=== PATIENT | female | born 2005 | race Caucasian/White ===

== ENCOUNTER 2025-01-11 17:59 | Emergency (ER) | payer OTHER, SELFPAY ==
[2025-01-11 18:04] VITALS: BP 144/92; PULSE 72; RESP 16; TEMP 37.1; O2SAT 97; BMI 24.5
--- NOTE | 2025-01-11 18:10 | CRLHL7_ITS ---
For Patients: As a result of the Century Cures Act, medical imaging exams and procedure reports are released immediately into your electronic medical record. You may view this report before your referring provider. If you have questions, please contact your health care provider. Indication: .dropped 30lb weight on foot Technique: Three views left foot. Comparison: None. Findings/Impression: No acute displaced fracture or malalignment. No soft tissue swelling. Joint spaces are maintained. Bony mineralization is age appropriate. Dictated by Pantera Elliott MD @ 01/11/2025 6:50:29 PM (Electronically Signed)
--- NOTE | 2025-01-11 19:11 | ED_ITS ---
HPI - General Adult General Chief complaint: Extremity Pain/Injury, Lower Stated complaint: L foot injury, dropped weight on it Time Seen by Provider: 01/11/25 18:00 History of Present Illness HPI narrative: This 19-year-old female comes in with an injury to her left foot. She was at a gymnasium when a 30 lb weight fell off of its rack and landed on the toes of her left foot. She does not report any other injury. She does come in with crutches for assistance in ambulating. Related Data Home Medications ?Medication ?Instructions ?Recorded ?Confirmed albuterol 90 mcg/actuation aerosol mcg inhalation 01/11/25 inhaler escitalopram oxalate 10 mg tablet 10 mg PO DAILY 01/11/25 01/11/25 (Lexapro) fluticasone propion-salmeterol inhalation DAILY 01/11/25 norethindrone 1.5 mg-ethinyl 1 tab PO DAILY 01/11/25 01/11/25 estradiol 30 mcg(21)/iron 75 mg(7) tablet (Aurovela Fe 1.5/30 (28)) Previous Rx's ?Medication ?Instructions ?Recorded ketorolac 10 mg tablet 10 mg PO Q8H 5 days #15 tabs 01/11/25 Allergies Allergy/AdvReac Type Severity Reaction Status Date / Time No Known Drug Allergies Allergy Verified 01/11/25 18:02 Review of Systems Status of ROS: Reports: 10 or more systems reviewed and unremarkable except as noted in History and below Narrative: Constitutional: No fevers, no weight gain or loss. Eyes: No discharge. No vision changes. HENT: No congestion, no sore throat, no ear pain. Cardiovascular: No chest pain, no palpitations. Respiratory: No shortness of breath, no wheezes, no cough. Gastrointestinal: No abdominal pain, no vomiting, no diarrhea. Genitourinary: No dysuria, no hematuria. Musculoskeletal: Normal range of motion. Left foot injury as described above. Skin: No rashes, no pruritis. Neurological: No dizziness, weakness, sensory change, speech change. Endo/Heme/Allergies: No bruising or bleeding. No polydipsia. Pysch: no suicidality, no anxiety, no insomnia. All other systems reviewed and are negative. [facility] Medical History (Updated 01/11/25 @ 19:22 by Jake Mcgregor MD) No significant past medical history Surgical History (Updated 01/11/25 @ 19:06 by Shan Yo RN) No significant past surgical history Social History Smoking Status: Never smoker Second hand tobacco smoke exposure: No How often do you have a drink containing alcohol: never AUDIT-C Alcohol total score: 0 Non-prescribed substance use: denies use Exam Narrative: Exam Narrative: Constitutional: Well-developed, well-nourished, no acute distress. HEENT: Normocephalic, atraumatic. Neck: Normal range of motion. Nontender. Supple. Heart: Intact distal pulses. Lungs: No chest discomfort. No wheezes, rhonchi, or rales. Abdomen: Nontender. Back: Normal range of motion. Extremities: Normal range of motion. Pain in the middle toes of the left foot but no sign of deformity or significant swelling. No skin injury. Skin: Intact. No rash. Warm. No erythema or pallor. Neurologic: No altered sensation. No weakness. Alert and oriented. Psychiatric: No suicidality. No anxiety or depression. No insomnia. Nursing notes and vitals signs are reviewed. Const: Vital Signs, click to edit/add: Vital Signs - 24 hr 01/11/25 18:04 Temperature 98.8 F Pulse Rate [Pulse Oximeter] 72 Respiratory Rate 16 Blood Pressure [Ri ght Upper Arm] 144/92 H Pulse Oximetry 97 Oxygen Delivery Me thod Room Air Course Vital Signs Vital signs: Initial Vital Signs Temperature 98.8 F 01/11/25 18:04 Temperature Source Temporal Artery Scan 01/11/25 18:04 Pulse Rate 72 01/11/25 18:04 Respiratory Rate 16 01/11/25 18:04 Blood Pressure 144/92 H 01/11/25 18:04 Blood Pressure Mean 109 H 01/11/25 18:04 Blood Pressure Position Sitting 01/11/25 18:04 Pulse Oximetry 97 01/11/25 18:04 Oxygen Delivery Method Room Air 01/11/25 18:04 Vital Signs Temperature 98.8 F 01/11/25 18:04 Pulse Rate 72 01/11/25 18:04 Respiratory Rate 16 01/11/25 18:04 Blood Pressure 144/92 H 01/11/25 18:04 Pulse Oximetry 97 01/11/25 18:04 Oxygen Delivery Method Room Air 01/11/25 18:04 Temperature 98.8 F 01/11/25 18:04 Pulse Rate 72 01/11/25 18:04 Respiratory Rate 16 01/11/25 18:04 Blood Pressure 144/92 H 01/11/25 18:04 Pulse Oximetry 97 01/11/25 18:04 Oxygen Delivery Method Room Air 01/11/25 18:04 Medical Decision Making MDM Narrative Medical decision making narrative: This patient comes in with an injury to her left foot as described above. X-ray images show no sign of fracture dislocation. The patient is requesting a boot as she is a college student and reports that crutches would be difficult with getting around her daily activities. She also received a prescription for Toradol. Imaging Data XR R Foot: Radiologist's impression: XR: Left Foot No acute displaced fracture or malalignment. No soft tissue swelling. Joint spaces are maintained. Bony mineralization is age appropriate. Discharge Plan Discharge Clinical Impression: Contusion of foot, left Patient Disposition: Home w/ Parent or Adult Condition: Stable Additional Instructions: Wear boot as needed for ambulating. Increase activity as tolerated. Use Toradol as needed and directed for pain relief. Follow up with MD return if worsening. Prescriptions: New ketorolac 10 mg tablet 10 mg PO Q8H 5 Days Qty: 15 0RF No Action albuterol 90 mcg/actuation aerosol inhalation norethindrone-e.estradiol-iron [Aurovela Fe 1.5/30 (28)] 1.5 mg-30 mcg (21)/75 mg (7) tablet 1 tab PO DAILY fluticasone propion-salmeterol [Advair Diskus] inhalation DAILY escitalopram oxalate [Lexapro] 10 mg tablet 10 mg PO DAILY Stand Alone Forms: [employer] Info Instructions
--- OUTSIDE RECORDS SUMMARY | 2025-01-11 19:44 | XMS_ITS | Clinical Summary ---
Author Organization [facility] Address [address] [place] [id number] Care Team Providers Care Holistic Specialist Name Role Phone Roberta Beyer MD Primary Care Provi hattie Allergies No known active allergies Medications norethin lydia-eth estrad-fe, 1.5-30 mg-mcg, (, ,) 1.5 mg-30 mcg (21)/75 mg (7) tabletIndicatio ns: control counseling Take 1 Tablet by mouth once daily. Take three months of active pills in a row then placebo pills for a week. 112 Tablet 3 12/30/19 25 Active albuterol HFA (PRO-AIR; VENTOLIN; PROVENTIL) 90 mcg/actuation inhalerIndicati ons:Exacerbatio n of asthma, unspecified asthma severity, unspecified whether persistent (HC) Inhale 2 Puffs by mouth every 4 hours if needed for Shortness Of Breath or Wheezing. 6.7 g 1 12/30/19 25 Active fluticasone propion-salmete roL (Wixela Inhub) 250-50 mcg/Dose diskus inhalerIndicati ons:Moderate persistent asthma, unspecified whether complicated (HC) Inhale 1 Puff by mouth every 12 hours. 60 Each 5 12/30/19 25 Active FLUoxetine (PROZAC) 10 mg capsuleIndicati ons:Generalized anxiety disorder Take 1 Capsule (10 mg) by mouth once daily. 30 Capsule 1 12/30/19 25 Active escitalopram oxalate (LEXAPRO) 10 mg tabletIndicatio ns:Generalized anxiety disorder Take 1 Tablet (10 mg) by mouth once daily in the morning. 30 Tablet 1 01/06/20 25 Active albuterol HFA (PRO-AIR; VENTOLIN; PROVENTIL) 90 mcg/actuation inhalerIndicati ons:Exercise induced bronchospasm (HC) Inhale 2 Puffs by mouth every 4 hours if needed (and before sports). 1 Each 2 11/19/19 24 025 Discontinued(*P atient states no longer taking) norethin lydia-eth estrad-fe, 1.5-30 mg-mcg, (Junel FE 1.530, 28,) 1.5 mg-30 mcg (21)/75 mg (7) tabletIndicatio ns: control counseling Take 1 Tablet by mouth once daily. 84 Tablet 3 02/25/20 24 025 Discontinued(*A vailability/For mulary change/Cost of medication) fluticasone propion-salmete roL (Wixela Inhub) 250-50 mcg/Dose diskus inhalerIndicati ons:Moderate persistent asthma, unspecified whether complicated (HC) INHALE 1 PUFF BY MOUTH EVERY 12 HOURS 60 Each 5 05/05/20 24 025 Discontinued(Re order (E-cancel not sent)) prochlorperazin e (COMPAZINE) 10 mg tabletIndicatio ns:Nausea Take 1 Tablet (10 mg) by mouth every 8 hours if needed for Nausea/Vomit ing. 10 Tablet 05/18/20 24 025 Discontinued(*P atient states no longer taking) amoxicillin-cla vulanate (AUGMENTIN) 875-125 mg tablet Take 1 Tablet by mouth two times daily. 09/23/20 24 025 Discontinued(*M ed complete/Regime n complete/Level of care change) Simpesse 0.15 mg-30 mcg (84)/10 mcg (7) tab Take 1 Tablet by mouth once daily. 05/17/20 24 025 Discontinued(*M ed complete/Regime n complete/Level of care change) oxyCODONE (ROXICODONE) 5 mg immediate release tablet 05/19/20 24 025 Discontinued(*M ed complete/Regime n complete/Level of care change) predniSONE (DELTASONE) 20 mg tablet Take 2 Tablets by mouth once daily. 09/23/20 24 025 Discontinued(*M ed complete/Regime n complete/Level of care change) albuterol HFA (PRO-AIR; VENTOLIN; PROVENTIL) 90 mcg/actuation inhalerIndicati ons:Exacerbatio n of asthma, unspecified asthma severity, unspecified whether persistent (HC) INHALE 1 TO 2 PUFFS BY MOUTH EVERY 4 HOURS NEEDED FOR SHORTNESS OF BREATH OR WHEEZING 6.7 g 12/12/19 25 025 Discontinued norethin lydia-eth estrad-fe, 1.5-30 mg-mcg, (Junel FE .03/24, ,) 1.5 mg-30 mcg (21)/75 mg (7) tabletIndicatio ns: control counseling Take 1 Tablet by mouth once daily. 84 Tablet 12/17/19 25 025 Discontinued(Re order (E-cancel not sent)) albuterol HFA (PRO-AIR; VENTOLIN; PROVENTIL) 90 mcg/actuation inhalerIndicati ons:Exacerbatio n of asthma, unspecified asthma severity, unspecified whether persistent (HC) INHALE 1 TO 2 PUFFS BY MOUTH EVERY 4 HOURS NEEDED FOR SHORTNESS OF BREATH OR WHEEZING 6.7 g 12/27/19 25 025 Discontinued(Re order (E-cancel not sent)) Active Problems Problem Noted Date Diagnosed Date Generalized anxiety disorder 12/29/2024 Syringomyelia 02/11/2023 Resolved Problems Problem Noted Date Diagnosed Date Resolved Date HEALTH MAINTENANCE 12/26/2009 Overview (12/26/2009): PKU NEGATIVE PASSED OAE BILATERAL Encounters Date Type Department Care Team Description 01/11/2025 Refill [facility] [address] [place] [address] Lauren Aguilar MD Refill Request (Albuterol Hfa) 12/29/2024 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 Visit [facility] [address] [place] [address] Roberta Beyer MD Well Child (19 year old ); Establish Care (Unsure on what to do goes to school in town.); Anxiety 12/29/2024 Travel 12/27/2024 Travel 12/25/2024 Travel 12/25/2024 Refill [facility] [address] [place] [address] Lauren Aguilar MD Refill Request (Albuterol Hfa) 12/16/2024 Refill [facility] [address] [place] [address] Reji Zamarripa MD Refill Request (Junel) 12/09/2024 Refill [facility] [address] [place] [address] Reji Zamarripa MD Refill Request (Albuterol Hfa) 11/26/2024 Telephone [facility] [address] [place] [address] Abigail Mcadams DO 11/26/2024 Refill [facility] [address] [place] [address] Reji Zamarripa MD Refill Request (albuterol) 11/26/2024 Nurse Triage [facility] [address] [place] [address] Clinic, No Pcp Or Refill Request from Last 3 Months Immunizations Immunization Administration Dates Next Due COVID-19 vaccine ([employer] 30mcg/0.3mL) MD STEFANV 12/26/2021 DTaP 03/29/2007 CRoO-JkeM-DRT (Pediarix) 06/11/2006,04/16/2006,0 02/16/2006 DTaP-IPV (Kinrix) 01/17/2011 HIB PRP-T (ActHIB,Hiberix) 12/18/2006,,04/16/2006,02/16 HPV 9 (Gardasil 9) 01/10/2019,01/07/2018 Hepatitis A (Peds) 12/28/2007,03/29/2007 INFLUENZA, IIV3 PF (AGE >= 6 MO) 07/28/2024 Influenza A (H1N1), Inactivated 08/11/2021,08/30 Influenza A (H1N1), Inactiva frank (Age >=3 Years) 07/05/2013,10/09/2009 Influenza, IIV3 (Age 6-35 mos) 7,08/04/2009,08/24/2008,08/05,09/07/2006,08/06/2006 Influenza, IIV3 (Age >=3 years) 08/11/20 21,07/05/2014,07/06/2013,07/30,07/14/2011,08/01/2010 Influenza, IIV4 07/30/2018,08/17/2015 Influenza, IIV4 (=>6mos) MDV 08/07/2019 Influenza,CCIIV4 PRESERV FREE 08/12/2023, 022,07/21/2020 MENINGOCOCCAL VACCINE 2 VIAL 2MO-55YO (MENVEO) 12/26/2021,01/06/2017 MMR 12/26/2009,12/18/2006 Meningococcal B 03/30/2024,02/16/2024 Pneumococcal conj 7-Valent (Prevnar 7) 0 12/18/2006,06/11/2006,04/16/2006,02/16 Research Immunization 12/18/2006, 006,04/16/2006,02/16 Tdap 12/19/2015 Typhoid (injectable) 12/25/2023,12/30/2019 Varicella Vaccine 12/26/2009,12/18/2006 Family History Medical History Relation Name Comments Cancer Other 1 GRANDFATHER PROSTATE CANCER Other Other 2 Great grandmoth er (tuberculosis) Relation Name Status Comments Brother NICK Alive 2002 Father JAKE Alive 1972; Real Esta te Mother LALITA Alive 1971; Other 1 GRANDFATHER Other 2 Social History Tobacco Use Types Packs/Day Years Used Date Smoking Tobacco: Never Smokeless Tobacco: Never Tobacco Cessation:Counseling Given: No Alcohol Use Standard Drinks/Week Comments Never 0 (1 standard drink = 0.6 oz pur e alcohol) PHQ-2 Answer Date Recorded PHQ-2 TOTAL SCORE 0 12/29/2024 Social Connections Answer Date Recorded Do you often feel lonely or isolated from those around you? 0 12/27/2024 Financial Resource Strain Answer Date R ecorded Difficulty of Paying Living Expenses 3 12/27/2024 Difficulty of Paying Living Expenses Not on file 12/27/2024 Food Insecurity Answer Date Recorded Do you worry your food will run out before you are able to buy more? 1 12/27/2024 Transportation Needs Answer Date Record ed Does lack of transportation keep you from medica l appointments? 1 12/27/2024 Does lack of transportation keep you from work, meetings or getting things that you need? 1 12/27/2024 Housing Stability Answer Date Recorded What is your housing situation today? 1 12/27/2024 Utilities Answer Date Recorded Do you have trouble paying f or utilities (for example, heat, electricity, water, phone)? 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 Gender Identity Not on file Sexual Orientation Not on file Obstetrics History Para Term AB IAB SAB Ectopic Multiple Livin g Live Births 0 0 0 0 0 0 0 0 0 0 0 Last Filed Vital Signs Vital Sign Reading Time Taken Comments Blood Pressure 122/73 12/29/2024 1:58 PM CEMENT TRUCK DRIVER Pulse 85 12/29/2024 1:58 PM CEMENT TRUCK DRIVER Temperature 36.8 C (98.3 F) 05/19/2024 4:09 AM CDT Respiratory Rate 20 05/19/2024 4:09 AM CDT Oxygen Saturation 100% 12/29/2024 1:58 PM CEMENT TRUCK DRIVER Inhaled Oxygen Concentration - - Weight 71.1 kg (156 lb 12.8 oz) 12/29/2024 1:58 PM CEMENT TRUCK DRIVER Height 171.4 cm (5' 7.48) 12/29/2024 1:58 PM CS T Body Mass Index 24.21 12/29/2024 1:58 PM CEMENT TRUCK DRIVER Plan of Treatment Health Maintenance Due Date Last Done Comments Hepatitis C screening for ag e 18-79 2023 02/11/2023 Pneumococcal series for age 6-49 (1 of 2 - PCV) 2024 12/18/2006, 06/11/2006, 04/16/2006, Additional history exists Chlamydia for age 16-24 02/15/2025 02/16/2024 Tetanus booster 12/19/2025 12/19/2015 BMI (ht and wt on same day) for age 18+ 12/29/2025 12/29/2024, 02/16/2024, 12/25/2023 Depression screening for age 12+ 12/29/2025 12/29/2024, 02/16/2024, 02/11/2023, Additional history exists Well Child Check for age 3-20 12/29/2025, 02/16/2024, 02/11/2023, Additional history exists Tdap Completed 12/19/2015 HPV series for age 9-26 Completed 01/10/2019, 01/07 Meningococcal series for age 11-21 Completed 2021, 01/06/2017 HIV for age 15-65 Completed 02/11/2023 Influenza Vaccine Completed 07/28/2024, , 09/13/2022, Additional history exists COVID-19 vaccine series Completed 08/08/20, 09/12/2023, 09/28/2022, Additional history exists Procedures Procedure Name Priority Date/Time Associated Diagnosis Comments GC CHLAMYDIA TRACH PROBE Routine 02/16/2024 8:56 AM CDT control counseling LC HIV-1/O/2, 4TH GENERATION Routine 02/11/2023 12:51 PM CDT Screening for HIV (human immunodeficiency virus) LC HCV ANTIBODY RFX TO QUANT PCR Routine 02/11/2023 12:51 PM CDT Encounter for routine child health examination without abnormal findings from Last 3 Months or Most Recently Relevant to Health Maintenance Results * GC CHLAMYDIA TRACH PROBE (02/16/2024 8:56 AM CDT) CHLAMYDIA PROBE Negative 8:11 PM CDT [facility] N GONORRHOEAE PROBE Negative 02/16/2024 8:11 PM CDT [facility] Other URINE SPECIMEN / Unknown Non-Blood / Unknown 02/16/2024 8:56 AM CDT 02/16/2024 8:56 AM CDT Reji Zamarripa MD MICROBIOLOGY Final Res ult [facility] [address] [place] [address], [place] * LC HCV ANTIBODY RFX TO QUANT PCR (02/11/2023 12:51 PM CDT) HCV Ab Non Reactive Non Reactive 02/14/2023 5:09 AM CDT [facility] Blood BLOOD SPECIMEN / Unknown Venipuncture / Unknown 02/11/2023 12:51 PM CDT 02/11/2023 12:51 PM CDT Narrative [facility] - 02/14/2023 5:09 AM CDT Performed at: [address] [place] [id number] Robotics Technician: Sarwat Sanchez MD, Phone: [phone] Reji Zamarripa MD LABORATORY Final Res ult [facility] ([facility]) [address] [place] [id number], * LC HIV-1/O/2, 4TH GENERATION (02/11/2023 12:51 PM CDT) HIV Scr 4th Gen Non Reactive Non Reactive 02/13/2023 12:08 PM CDT [facility] Comment: HIV Negative HIV-1/HIV-2 antibodies and HIV-1 p24 antigen were NOT detected. There is no laboratory evidence of HIV infection. Blood BLOOD SPECIMEN / Unknown Venipuncture / Unknown 02/11/2023 12:51 PM CDT 02/11/2023 12:51 PM CDT Narrative [facility]) - 02/13/2023 12:08 PM CDT Performed at: [address] [id number] Robotics Technician: Sarwat Sanchez MD, Phone: [phone] us Reji Zamarripa MD LABORATORY Final Res ult [facility] ([facility]) [address] [place] [address], from Last 3 Months or Most Recently Relevant to Health Maintenance Insurance [employer] [employer] Advance Directives * Full Code (Latest Code Status on File) Date Activated Date Inactivated Comments 01/31/2022 10:35 AM 01/31/2022 8:13 PM Question Answer Comments Code Status Discussion: Reviewed Preferences Care Teams Holistic Specialist Relationship Specialty Start Date End Date Roberta Beyer MD [address] [facility] [address] PCP - General Pediatric 12/29/24
--- OUTSIDE RECORDS SUMMARY | 2025-01-11 19:44 | XMS_ITS | Clinical Summary ---
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 Mud Analysis Name Role Phone Mat Laguna MD Unavailable [phone] No Ref-Primary, Physician Primary Care Provider Allergies No known active allergies Medications albuterol (PROAIR HFA/PROVENTIL HFA/VENTOLIN HFA) 108 (90 Base) MCG/ACT inhaler Inhale 2 puffs into the lungs 2 Active norethindrone-e thinyl estradiol-iron (MICROGESTIN FE1.5/30) 1.5-30 MG-MCG tablet Take 1 tablet by mouth daily 2 Active adapalene (DIFFERIN) 0.3 % external gel APPLY TOPICALLY TO FACE AND CHEST DAILY 2 Active triamcinolone (KENALOG) 0.1 % external cream APPLY TO THE AFFECTED AREA OF HANDS TWICE DAILY 2 Active fluticasone-alverto meterol (ADVAIR) 100-50 MCG/ACT inhaler Inhale 1 puff into the lungs every 12 hours Active Social History Tobacco Use Types Packs/Day Years Used Date Smoking Tobacco: Never Passive Smoke Exposure: Never Smokeless Tobacco: Never Tobacco Cessation:Counseling Given: Not Answered PHQ-2 Answer Date Recorded PHQ-2 Score 0 03/24/2023 Adolescent Education Answer Date Record ed Getting School Help Needed Not on file 07/18 Comments Unknown Sex and Gender Information Value Date Recorded Sex Assigned at Not on file Legal Sex Female 4:14 PM CDT Gender Identity Not on file Sexual Orientation Not on file Last Filed Vital Signs Vital Sign Reading Time Taken Comments Blood Pressure 116/77 03/24/2023 4:37 PM CDT Pulse 78 03/24/2023 4:37 PM CDT Temperature - - Respiratory Rate - - Oxygen Saturation - - Inhaled Oxygen Concentration - - Weight 70.8 kg (156 lb 1.4 oz) 03/24/2023 4:37 P M CDT Height 170.3 cm (5' 7.05) 03/24/2023 4:37 PM CD T Head Circumference 56.6 cm 03/24/2023 4:37 PM CDT Body Mass Index 24.41 03/24/2023 4:37 PM CDT Body Mass Index Percentile 80.71% 03/24/2023 4:3 7 PM CDT Growth Chart: CDC (Girls, 2- 20 Years) Plan of Treatment Health Maintenance Due Date Last Done Comments ADVANCE CARE PLANNING 2005 ANNUAL REVIEW OF HM ORDERS 2005 CHLAMYDIA SCREENING 2005 MENINGITIS B IMMUNIZATION (1 of 2 - Standard) 2021 YEARLY PREVENTIVE VISIT 02/12/2024 02/12/20, 12/26/2021, 01/02/2021 COVID-19 Vaccine ( season) 2024 09/28/2022, 12/26/2021, 03/29/2021, Additional history exists INFLUENZA VACCINE (#1) 2024 , 08/11/2021, 08/11/2021, Additional history exists PHQ-2 (once per calendar year) 2024 03/24/2023 DTAP/TDAP/TD IMMUNIZATION (7 - Td or Tdap) 12/19/2025 12/19/2015, 01/17/2011, 03/29/2007, Additional history exists ZOSTER IMMUNIZATION (1 of 2) 2055 HEPATITIS B IMMUNIZATION Completed 006, 04/16/2006, 02/16/2006 HIB IMMUNIZATION Completed 12/18/2006, , 04/16/2006, Additional history exists Pneumococcal Vaccine: Pediatrics (0 to 5 Years) and At-Risk Patients (6 to 49 Years) Aged Out 12/18/2006, 06/11/2006, 04/16/2006, Additional history exists No longer eligible based on patient's age to complete this topic VARICELLA IMMUNIZATION Completed 12/26/2009, 2006 IPV IMMUNIZATION Completed 01/17/2011, , 04/16/2006, Additional history exists HPV IMMUNIZATION Completed 01/10/2019, 01/07/2018 MENINGITIS IMMUNIZATION Completed 12/26/2021, 01/06 HEPATITIS C SCREENING Completed 02/11/2023 HIV SCREENING Completed 02/11/2023 Care Teams Well Logging Operator Mud Analysis Relationship Specialty Start Date End Date No Ref-Primary, Physician PCP - General 02/21/22 Mat Laguna MD [address] [facility] [address] [place] [address] Neurological Surgery 02/21/22
[2025-01-11 19:51] VITALS: BP 135/85; PULSE 70; RESP 16; TEMP 37.1; O2SAT 97
[2025-01-11 19:52] VITALS: BP 135/85; PULSE 70; RESP 16; TEMP 37.1
== END 2025-01-11 19:53 | disposition home or self-care (01) ==
LOC: ED 19:42
PROVIDERS: Emergency Provider Emergency Medicine Emergency Medical Services; PCP Pediatrics
DX: S90.32XA Contusion of left foot, initial encounter (principal); W22.8XXA Striking against or struck by other objects, initial encounter
CPT/HCPCS: 73630; 99283; 99284

== ENCOUNTER 2025-02-26 15:40 | Emergency (ER) | payer OTHER, SELFPAY ==
--- OUTSIDE RECORDS SUMMARY | 2025-02-26 15:42 | XMS_ITS | Clinical Summary ---
Author Organization [facility] Address [address] [place] [address] Care Team Providers Care Hse Coordinator Name Role Phone Roberta Beyer MD Primary Care Provi hattie Allergies No known active allergies Medications norethin lydia-eth estrad-fe, 1.5-30 mg-mcg, (, ,) 1.5 mg-30 mcg (21)/75 mg (7) tabletIndicatio ns: control counseling Take 1 Tablet by mouth once daily. Take three months of active pills in a row then placebo pills for a week. 112 Tablet 3 5 Active albuterol HFA (PRO-AIR; VENTOLIN; PROVENTIL) 90 mcg/actuation inhalerIndicati ons:Exacerbatio n of asthma, unspecified asthma severity, unspecified whether persistent (HC) Inhale 2 Puffs by mouth every 4 hours if needed for Shortness Of Breath or Wheezing. 6.7 g 1 5 Active fluticasone propion-salmete roL (Wixela Inhub) 250-50 mcg/Dose diskus inhalerIndicati ons:Moderate persistent asthma, unspecified whether complicated (HC) Inhale 1 Puff by mouth every 12 hours. 60 Each 5 5 Active escitalopram oxalate 10 mg tabletIndicatio ns:Generalized anxiety disorder Take 1 Tablet (10 mg) by mouth once daily. 90 Tablet 1 5 Active FLUoxetine (PROZAC) 10 mg capsuleIndicati ons:Generalized anxiety disorder Take 1 Capsule (10 mg) by mouth once daily. 30 Capsule 1 5 01/31/20 25 Discontinu ed(*Patien t states no longer taking) escitalopram oxalate (LEXAPRO) 10 mg tabletIndicatio ns:Generalized anxiety disorder Take 1 Tablet (10 mg) by mouth once daily in the morning. 30 Tablet 1 5 01/31/20 25 Discontinu ed(Reorder (E-cancel not sent)) Active Problems Problem Noted Date Diagnosed Date Generalized anxiety disorder 12/29/2024 Syringomyelia 02/11/2023 Resolved Problems Problem Noted Date Diagnosed Date Resolved Date HEALTH MAINTENANCE 12/26/2009 Overview (12/26/2009): PKU NEGATIVE PASSED OAE BILATERAL Encounters Date Type Department Care Team Description 01/30/2025 2:30 PM CDT Telemedicine [facility] [address] [place] [address] Roberta Beyer MD Medication Management (Lexapro. Going good ); Telehealth (No Vitals Done ); Allergic Reaction (Been happening since last September so about 4 months ago. Set up an appointment with an residential nurse this morning but wanted to mention it to you ) 01/29/2025 Travel 01/11/2025 Refill [place] [id number] [facility] [address] [place] [address] Lauren Aguilar MD Refill Request (Albuterol Hfa) 12/29/2024 2:00 PM SUPERVISOR SIGN SHOP Office Visit [facility] [address] [place] [address] Roberta Beyer MD Well Child (19 year old ); Establish Care (Unsure on what to do goes to school in town.); Anxiety 12/29/2024 Travel 12/27/2024 Travel 12/25/2024 Travel 12/25/2024 Refill [place] [facility] [facility] [address] [place] [address] Lauren Aguilar MD Refill Request (Albuterol Hfa) 12/16/2024 Refill [place] [facility] [address] [place] [address] Reji Zamarripa MD Refill Request (Junel) 12/09/2024 Refill [place] [facility] [address] [place] [address] Reji Zamarripa MD Refill Request (Albuterol Hfa) from Last 3 Months Immunizations Immunization Administration Dates Next Due COVID-19 vaccine (TheShoppingPro NTech 30mcg/0.3mL) PF, MDV 12/26/2021 DTaP 03/29/2007 [id number] (Pediarix) 06/11/2006,04/16/2006,0 02/16/2006 DTaP-IPV (Kinrix) 01/17/2011 HIB [...] Answer Date Recorded PHQ-2 TOTAL SCORE 0 01/30/2025 Social Connections Answer Date Recorded Do you [...] on file Legal Sex Female 7:14 AM SUPERVISOR SIGN SHOP Gender Identity Not on file Sexual Orientation Not on file Travel History Travel Start Travel End [place] 01/21/2025 01/28/2025 Obstetrics History Para Term AB IAB SAB Ectopic Multiple Livin g Live Births 0 0 0 0 0 0 0 0 0 0 0 Last Filed Vital Signs Vital Sign Reading Time Taken Comments Blood Pressure 122/73 12/29/2024 1:58 PM SUPERVISOR SIGN SHOP Pulse 85 12/29/2024 1:58 PM SUPERVISOR SIGN SHOP Temperature 36.8 C (98.3 F) 05/19/2024 4:09 AM CDT Respiratory Rate 20 05/19/2024 4:09 AM CDT Oxygen Saturation 100% 12/29/2024 1:58 PM SUPERVISOR SIGN SHOP Inhaled Oxygen Concentration - - Weight 71.1 kg (156 lb 12.8 oz) 12/29/2024 1:58 PM SUPERVISOR SIGN SHOP Height 171.4 cm (5' 7.48) 12/29/2024 1:58 PM CS T Body Mass Index 24.21 12/29/2024 1:58 PM SUPERVISOR SIGN SHOP Plan of Treatment Health Maintenance Due Date Last Done Comments Hepatitis C screening for ag e 18-79 2023 02/11/2023 Pneumococcal series for age 6-49 (1 of 2 - PCV) 2024 12/18/2006, 06/11/2006, 04/16/2006, Additional history exists Chlamydia for age 16-24 02/15/2025 02/16/2024 Tetanus booster 12/19/2025 12/19/2015 BMI (ht and wt on same day) for age 18+ 12/29/2025 12/29/2024, 02/16/2024, 12/25/2023 Well Child Check for age 3-20 12/29/2025, 02/16/2024, 02/11/2023, Additional history exists Depression screening for age 12+ 01/30/2026 01/30/2025, 12/29/2024, 02/16/2024, Additional history exists Tdap Completed 12/19/2015 HPV series for age 9-26 Completed 01/10/2019, 01/07 Meningococcal series for age 11-21 Completed 2021, 01/06/2017 HIV for age 15-65 Completed 02/11/2023 Influenza Vaccine Completed 07/28/2024, , 09/13/2022, Additional history exists COVID-19 vaccine series Completed 08/08/20 24, 09/12/2023, 09/28/2022, Additional history exists Procedures Procedure [...] CDT) CHLAMYDIA PROBE Negative 8:11 PM CDT [facility] TRAL LABORATORY N GONORRHOEAE PROBE Negative 02/16/2024 8:11 PM CDT [facility] TRAL LABORATORY Other URINE SPECIMEN / Unknown Non-Blood / Unknown 02/16/2024 8:56 AM CDT 02/16/2024 8:56 AM CDT us Reji Zamarripa MD MICROBIOLOGY Final Res ult [facility] [address] [place] [address], * LC HCV ANTIBODY RFX TO QUANT PCR (02/11/2023 12:51 PM CDT) HCV Ab Non Reactive Non Reactive 02/14/2023 5:09 AM CDT [facility] Blood BLOOD SPECIMEN / Unknown Venipuncture / Unknown 02/11/2023 12:51 PM CDT 02/11/2023 12:51 PM CDT Narrative [facility] ([facility]ET) - 02/14/2023 5:09 AM CDT Performed at: [address] [place] [id number] Plasterer Foreman: Sarwat Sanchez MD, Phone: [phone] Reji Zamarripa MD LABORATORY Final Res ult Performing Organization Address City/[facility]/ZIP Co de Phone Number [facility] (CET) [address] [place] [address] * LC HIV-1/O/2, 4TH GENERATION (02/11/2023 12:51 PM CDT) [facility] Signature HIV Scr 4th Gen Non Reactive Non Reactive 02/13/2023 12:08 PM CDT [facility] ([facility]) Comment: HIV Negative HIV-1/HIV-2 antibodies and HIV-1 p24 antigen were NOT detected. There is no laboratory evidence of HIV infection. Blood BLOOD SPECIMEN / Unknown Venipuncture / Unknown 02/11/2023 12:51 PM CDT 02/11/2023 12:51 PM CDT [facility] (CET) - 02/13/2023 12:08 PM CDT Performed at: [address] [place] [address] [id number] Plasterer Foreman: Sarwat Sanchez MD, Phone: [phone] us Reji Zamarripa MD LABORATORY Final Res ult Performing Organization Address City/[facility]/ZIP Co de Phone Number [facility] (CET) [address] [place] [address] from Last 3 Months or Most Recently Relevant to Health Maintenance Insurance [employer] AETNA [facility] Advance Directives * Full Code (Latest Code Status on File) Date Activated Date Inactivated Comments 01/31/2022 10:35 AM 01/31/2022 8:13 PM Question Answer Comments Code Status Discussion: Reviewed Preferences Care Teams Hse Coordinator Relationship Specialty Start Date End Date Roberta Beyer MD [address] [place] [address] PCP - General Pediatric 12/29/24
--- OUTSIDE RECORDS SUMMARY | 2025-02-26 15:42 | XMS_ITS | Clinical Summary ---
Author Organization [facility] Address [address] [place] [address] Care Team Providers Care Geothermal Operations Manager Name Role Phone Mat Laguna MD Unavailable [phone] No Ref-Primary, Physician Primary Care Provider Allergies [...] 02/11/2023 HIV SCREENING Completed 02/11/2023 Care Teams Geothermal Operations Manager Relationship Specialty Start Date End Date No Ref-Primary, Physician PCP - General 02/21/22 Mat Laguna MD [address] [facility] [address] [place] [address] Neurological Surgery 02/21/22
[2025-02-26 15:51] VITALS: BP 114/79; PULSE 110; RESP 18; TEMP 36.7; O2SAT 97; BMI 23.6
--- NOTE | 2025-02-26 16:19 | ED_ITS ---
HPI - General Adult General Date Seen: 02/26/25 Chief complaint: Extremity Pain/Injury, Upper Stated complaint: R finger infection Time Seen by Provider: 02/26/25 16:18 History of Present Illness HPI narrative: 19 yo generally healthy F presenting to the ER today with her mother with concern for an infection in her right hand 3rd digit (long finger) fingernail/finger tip. She notes that she had a similar infection a few years ago that spontaneously drained some pus and then got better after she got on some antibiotics. She noted about 3 days ago she started having some swelling and redness along the radial side of the middle finger fingernail plate and s lea then has noticed progressive swelling which is now on the radial and proximal end of the fingernail plate with a 2 x 3 mm area of white fluid that she can see under the skin. She is not having any fever. No red streaks moving upper finger. No trauma or pinching injury. She does have acrylic nails adhere to a fingernail plate and last had her finger nails trimmed about 3 weeks ago. She is not diabetic or immunosuppressed. Related Data Home Medications ?Medication ?Instructions ?Recorded ?Confirmed albuterol 90 mcg/actuation aerosol mcg inhalation 01/11/25 inhaler escitalopram oxalate 10 mg tablet 10 mg PO DAILY 01/11/25 01/11/25 (Lexapro) fluticasone propion-salmeterol inhalation DAILY 01/11/25 norethindrone 1.5 mg-ethinyl 1 tab PO DAILY 01/11/25 01/11/25 estradiol 30 mcg(21)/iron 75 mg(7) tablet (Aurovela Fe 1.5/30 (28)) Previous Rx's ?Medication ?Instructions ?Recorded ketorolac 10 mg tablet 10 mg PO Q8H 5 days #15 tabs 01/11/25 Allergies Allergy/AdvReac Type Severity Reaction Status Date / Time No Known Drug Allergies Allergy Verified 01/11/25 18:[address] [facility] Medical History (Updated 02/26/25 @ 16:45 by Santy Mendoza MD) No significant past medical history Surgical History (Updated 01/11/25 @ 19:06 by Shan Yo RN) No significant past surgical history Social History Smoking Status: Never smoker Second hand tobacco smoke exposure: No How often do you have a drink containing alcohol: never AUDIT-C Alcohol total score: 0 Non-prescribed substance use: denies use Exam Narrative: Exam Narrative: Constitutional: Appears well-developed and well-nourished. Active. Non-toxic appearing. Very pleasant. HENT: Head: Atraumatic. No signs of injury. Nose: No nasal discharge. Mouth/Throat: Mucous membranes are moist. Pharynx is normal. Tonsils symmetric. Uvula midline. Airway patent. Eyes: Conjunctivae normal and EOM are normal. Pupils are equal, round, and reactive to light. Right eye exhibits no discharge. Left eye exhibits no discharge. No icterus. Neck: Normal range of motion. Neck supple. No adenopathy. No stridor. Cardiovascular: Normal rate and regular rhythm. Brisk capillary refill . Pulmonary/Chest: Effort normal. No stridor. No respiratory distress. Musculoskeletal: Normal range of motion. No signs of trauma or injury. She does have a swelling and redness affecting the dorsal scan of the right hand 3rd digit (middle finger). She has erythema and swelling with a small area of fluctuant purulent material under the skin on the radial side with some erythema extending onto the proximal border of the fingernail plate. Consistent with a paronychia. No signs of redness or swelling under the fingernail plate or in the finger pad. No signs of ascending lymphangitis. The IP, PIP, MCP joints are normal. No signs of flexor tenosynovitis. Neurological: Alert. Normal strength. No cranial nerve deficit or sensory deficit. Coordination normal. GCS eye subscore is 4. GCS verbal subscore is 5. GCS motor subscore is 6. Skin: Skin is warm. No rash noted. Const: Vital Signs, click to edit/add: Vital Signs - 24 hr 02/26/25 15:51 Temperature 98.0 F Pulse Rate [Pulse Oximeter] 110 H Respiratory Rate 18 Blood Pressure [Ri ght Upper Arm] 114/79 Pulse Oximetry 97 Oxygen Delivery Me thod Room Air Course Vital Signs Vital signs: Initial Vital Signs Temperature 98.0 F 02/26/25 15:51 Temperature Source Temporal Artery Scan 02/26/25 15:51 Pulse Rate 110 H 02/26/25 15:51 Respiratory Rate 18 02/26/25 15:51 Blood Pressure 114/79 02/26/25 15:51 Blood Pressure Mean 90 02/26/25 15:51 Blood Pressure Position Sitting 02/26/25 15:51 Pulse Oximetry 97 02/26/25 15:51 Oxygen Delivery Method Room Air 02/26/25 15:51 Vital Signs Temperature 98.0 F 02/26/25 15:51 Pulse Rate 110 H 02/26/25 15:51 Respiratory Rate 18 02/26/25 15:51 Blood Pressure 114/79 02/26/25 15:51 Pulse Oximetry 97 02/26/25 15:51 Oxygen Delivery Method Room Air 02/26/25 15:51 Temperature 98.0 F 02/26/25 15:51 Pulse Rate 110 H 02/26/25 15:51 Respiratory Rate 18 02/26/25 15:51 Blood Pressure 114/79 02/26/25 15:51 Pulse Oximetry 97 02/26/25 15:51 Oxygen Delivery Method Room Air 02/26/25 15:51 Medications Administered Medications: Discontinued Medications Generic Name Dose Route Start Last Admin Trade Name Freq PRN Reason Stop Dose Admin Bupivacaine HCl 30 ml 02/26/25 16:31 02/26/25 16:46 Bupivacaine 0.25% 30 Ml INJECTION 02/26/25 16:32 30 ml ONCE ONE Administration Medical Decision Making MDM Narrative Medical decision making narrative: This is a pleasant generally healthy 19-year-old female presenting to the ER today with a paronychia affecting the right hand, 3rd digit. There is no signs of any pulp infection, Phalen, herpetic mikey, flexor tenosynovitis. No history of trauma to raise need for x-rays. After discussion with the patient she wanted to go ahead and drain the paronychia without local anesthesia. Therefore after sterile prep I used an 11 blade and made a small incision parallel to the fingernail plate in the area of fluctuance and we drained approximately 1 mL of purulent fluid. Patient tolerated this procedure very well. After draining the fluid we could see visibly see that the swollen area was decompressed and more flaccid. Patient will require initiation of oral antibiotics to treat the cellulitis surrounding this since there is a small rim of cellulitis about 2-4 mm. Will start on cephalexin. Cephalexin 500 q.i.d. for 7 days prescribed through [facility]. Discussed wound care, precautions for return to the ER, need for follow-up. Patient and her mother are eat pleased in here for discharge. Discharge Plan Discharge Clinical Impression: Paronychia of finger of right hand Patient Disposition: Home, Self-Care Condition: Stable Instructions: Paronychia (ED) Additional Instructions: As we discussed, please keep your infected finger tip clean. Keep covered with a Band-Aid and antibiotic ointment. It is okay to wash it gently once per day and then reapply antibiotic ointment and a Band-Aid. Started the antibiotics today and take them 4 times a day for 7 days. The infection should gradually get better and start healing up over the next 48-72 hours. It may take several more days for complete healing, however. If you notice that you have recurrent/worsening swelling and repeat accumulation of pus under the skin, or if you have red streaks spreading up your finger, worsening pain,, or if you have any other concerns, please return to the emergency department or see your doctor right away. Prescriptions: No Action albuterol 90 mcg/actuation aerosol inhalation norethindrone-e.estradiol-iron [Aurovela Fe 1.5/30 (28)] 1.5 mg-30 mcg (21)/75 mg (7) tablet 1 tab PO DAILY fluticasone propion-salmeterol [Advair Diskus] inhalation DAILY escitalopram oxalate [Lexapro] 10 mg tablet 10 mg PO DAILY ketorolac 10 mg tablet 10 mg PO Q8H 5 Days Qty: 15 0RF Follow Up/Referrals: Roberta Beyer MD [Primary Care Provider] - Stand Alone Forms: [employer] Info Instructions
[2025-02-26] MEDS: BUPIVACAINE 0.25% 30 ML INJECTION (16:46)
--- OUTSIDE RECORDS SUMMARY | 2025-02-26 16:57 | XMS_ITS | Clinical Summary ---
Author Organization [employer] [facility] Address [address] [place] [address] Care Team Providers Care Word Processing Machine Operator Name Role Phone Roberta Beyer MD Primary [...] Team Description 01/30/2025 2:30 PM CDT Telemedicine [facility] [address] [place] [address] Roberta Beyer MD Medication Management (Lexapro. Going good ); Telehealth (No Vitals Done ); Allergic Reaction (Been happening since last September so about 4 months ago. Set up an appointment with an lease examiner this morning but wanted to mention it to you ) 01/29/2025 Travel 01/11/2025 [facility]ill [place] [id number] [facility] [address] [place] [address] Lauren Aguilar MD Refill Request (Albuterol Hfa) 12/29/2024 2:00 PM LOG STACKER OPERATOR Office Visit [facility] [address] [place] [address] Roberta Beyer MD Well Child (19 year old ); Establish Care (Unsure on what to do goes to school in town.); Anxiety 12/29/2024 Travel 12/27/2024 Travel 12/25/2024 Travel 12/25/2024 Refill [facility] [address] [place] [address] Lauren Aguilar MD Refill Request (Albuterol Hfa) 12/16/2024 Refill [facility] [address] [facility] [address] [place] [address] Reji Zamarripa MD Refill Request (Junel) 12/09/2024 Refill [facility] [address] [facility] [address] [place] [address] Reji Zamarripa MD Refill Request (Albuterol Hfa) from Last 3 Months Immunizations Immunization Administration Dates Next Due COVID-19 vaccine (Tugende NTech 30mcg/0.3mL) PF, MDV 12/26/2021 DTaP 03/29/2007 [id number] (Pediarix) 06/11/2006,04/16/2006,0 02/16/2006 DTaP-IPV (Kinrix) 01/17/2011 HIB [...] on file Legal Sex Female 7:14 AM LOG STACKER OPERATOR Gender Identity Not on file Sexual Orientation Not on file Travel History Travel Start Travel End [place] 01/21/2025 01/28/2025 Obstetrics History Para Term AB IAB SAB Ectopic Multiple Livin g Live Births 0 0 0 0 0 0 0 0 0 0 0 Last Filed Vital Signs Vital Sign Reading Time Taken Comments Blood Pressure 122/73 12/29/2024 1:58 PM LOG STACKER OPERATOR Pulse 85 12/29/2024 1:58 PM LOG STACKER OPERATOR Temperature 36.8 C (98.3 F) 05/19/2024 4:09 AM CDT Respiratory Rate 20 05/19/2024 4:09 AM CDT Oxygen Saturation 100% 12/29/2024 1:58 PM LOG STACKER OPERATOR Inhaled Oxygen Concentration - - Weight 71.1 kg (156 lb 12.8 oz) 12/29/2024 1:58 PM LOG STACKER OPERATOR Height 171.4 cm (5' 7.48) 12/29/2024 1:58 PM CS T Body Mass Index 24.21 12/29/2024 1:58 PM LOG STACKER OPERATOR Plan of Treatment Health Maintenance Due Date [...] CDT) CHLAMYDIA PROBE Negative 8:11 PM CDT [facility] TRAL LABORATORY N GONORRHOEAE PROBE Negative 02/16/2024 8:11 PM CDT [facility] TRAL LABORATORY Other URINE SPECIMEN / Unknown Non-Blood / Unknown 02/16/2024 8:56 AM CDT 02/16/2024 8:56 AM CDT us Reji Zamarripa MD MICROBIOLOGY Final Res ult [facility] [address] [place] [address], * LC HCV ANTIBODY RFX TO QUANT PCR (02/11/2023 12:51 PM CDT) HCV Ab Non Reactive Non Reactive 02/14/2023 5:09 AM CDT [facility]) Blood BLOOD SPECIMEN / Unknown Venipuncture / Unknown 02/11/2023 12:51 PM CDT 02/11/2023 12:51 PM CDT Narrative [facility] ([facility]) - 02/14/2023 5:09 AM CDT Performed at: [address] [place] [id number] Medical Scribe: Sarwat Sanchez MD, Phone: [phone] Reji Zamarripa MD LABORATORY Final Res ult Performing Organization Address City/[facility]/ZIP Co de Phone Number [facility] ([facility]ET) [address] [place] [address] * LC HIV-1/O/2, 4TH GENERATION (02/11/2023 12:51 PM CDT) [facility] Signature HIV Scr 4th Gen Non Reactive Non Reactive 02/13/2023 12:08 PM CDT [facility] ([facility]) Comment: HIV Negative HIV-1/HIV-2 antibodies and HIV-1 p24 antigen were NOT detected. There is no laboratory evidence of HIV infection. Blood BLOOD SPECIMEN / Unknown Venipuncture / Unknown 02/11/2023 12:51 PM CDT 02/11/2023 12:51 PM CDT [facility] (CET) - 02/13/2023 12:08 PM CDT Performed at: [address] [place] [id number] Medical Scribe: Sarwat Sanchez MD, Phone: [phone] us Reji Zamarripa MD LABORATORY Final Res ult Performing Organization Address City/[facility]/ZIP Co de Phone Number [facility] ([facility]) [address] [place] [address] from Last 3 Months or Most Recently Relevant to Health Maintenance Insurance [employer] [facility] Advance Directives * Full Code (Latest Code Status on File) Date Activated Date Inactivated Comments 01/31/2022 10:35 AM 01/31/2022 8:13 PM Question Answer Comments Code Status Discussion: Reviewed Preferences Care Teams Word Processing Machine Operator Relationship Specialty Start Date End Date Roberta Beyer MD [address] [place] [address] PCP - General Pediatric 12/29/24
--- OUTSIDE RECORDS SUMMARY | 2025-02-26 16:57 | XMS_ITS | Clinical Summary ---
Author Organization [facility] Address [address] [place] [address] Care Team Providers Care Bottom Worker Name Role Phone Mat Laguna MD Unavailable [phone] No Ref-Primary, Physician Primary Care Provider Allergies [...] 02/11/2023 HIV SCREENING Completed 02/11/2023 Care Teams Bottom Worker Relationship Specialty Start Date End Date No Ref-Primary, Physician PCP - General 02/21/22 Mat Laguna MD [address] [facility] [address] [place] [address] Neurological Surgery 02/21/22
== END 2025-02-26 17:03 | disposition home or self-care (01) ==
LOC: ED 16:56
PROVIDERS: Emergency Provider Emergency Medicine; PCP Pediatrics
DX: L03.011 Cellulitis of right finger (principal)
CPT/HCPCS: 10060; 99282; 99283; J0665